=== PATIENT | female | born 1940 | race Caucasian/White ===

== ENCOUNTER 2021-08-24 16:34 | Inpatient (IN) ==
[2021-08-24] MEDS ORDERED: Isovue-370 500 ML BOTTLE IVP ONE (18:05)
[2021-08-24 19:26] LABS: Basophils % 0.1 %; Eosinophils % 0.1 %; Hematocrit 42.6 % (35.3-44.9); Hemoglobin 13.8 g/dL (11.5-15.4); Immature Granulocytes % 0.5 % (0-4); Lymphocytes # 0.9 K/mcL (0.6-4.6); Lymphocytes % 5.3 %; Mean Corpuscular HGB Conc 32.4 g/dL (31.6-35.5); Mean Corpuscular Hemoglobin 26.6 pg (28.0-33.3); Mean Corpuscular Volume 82.2 fL (83.0-100.0); Mean Platelet Volume 9.8 fL (9.4-12.4); Monocytes # 0.9 K/mcL (0.0-1.3); Monocytes % 5.4 %; Neutrophils # 14.9 K/mcL (1.6-8.9); Platelet Count 274 K/mcL (140-400); Red Blood Count 5.18 M/mcL (3.82-4.97); Red Cell Distribution Width 17.2 % (11.5-14.5); Segmented Neutrophils % 88.6 %; White Blood Count 16.8 K/mcL (4.3-11.1)
[2021-08-24 19:56] LABS: Activated Partial Thrombo Time 28.9 Seconds (26.0-36.0); INR 1.5; Prothrombin Time 16.4 Seconds (9.4-12.1)
[2021-08-24 20:01] LABS: BUN/Creatinine Ratio 31 (6-26); Blood Urea Nitrogen 28 mg/dL (8-23); Carbon Dioxide 34 mEq/L (23-29); Chloride 81 mEq/L (98-107); Sodium 129 mEq/L (136-145); eGFR For African Americans > 60 (> 60); eGFR For Non-African Americans 60 (> 60)
[2021-08-24 20:02] LABS: Alanine Aminotransferase 14 Units/L (7-52); Alkaline Phosphatase 96 Units/L (34-104); Aspartate Amino Transferase 23 Units/L (13-39); Bilirubin,Total 0.5 mg/dL (0.3-1.0); Calcium 9.2 mg/dL (8.6-10.3); Glucose 83 mg/dL (70-105); Osmolality,Calculated 273 (280-300); Total Protein 6.1 g/dL (6.4-8.9)
[2021-08-24 20:03] LABS: Albumin 4.2 g/dL (3.5-5.7); Albumin/Globulin Ratio 2.2 (1.1-2.2); Globulin 1.9 g/dL (2.4-3.5); Lipase 46 Units/L (11-82)
[2021-08-24] MEDS ORDERED: cefTRIAXone 2,000 MG in Water for inj. (sterile) 20 ML IVP ONE (20:56)
[2021-08-24] MEDS ORDERED: MetroNIDAZOLE 500 MG/100 ML 500 MG/100 ML BAG IVPB ONE (20:56)
[2021-08-25] MEDS ORDERED: Naloxone 0.4 MG/ML INJ IVP PRN (01:03)
[2021-08-25] MEDS ORDERED: Ondansetron 4 MG/2 ML VIAL IVP PRN (01:03)
[2021-08-25 02:00] LABS: Basophils % 0.1 %; Eosinophils % 0.1 %; Hematocrit 37.1 % (35.3-44.9); Immature Granulocytes % 0.7 % (0-4); Lymphocytes # 0.9 K/mcL (0.6-4.6); Lymphocytes % 6.3 %; Mean Corpuscular HGB Conc 32.3 g/dL (31.6-35.5); Mean Corpuscular Hemoglobin 26.7 pg (28.0-33.3); Mean Corpuscular Volume 82.4 fL (83.0-100.0); Monocytes # 1.2 K/mcL (0.0-1.3); Monocytes % 8.3 %; Neutrophils # 12.3 K/mcL (1.6-8.9); Platelet Count 245 K/mcL (140-400); Red Cell Distribution Width 17.3 % (11.5-14.5); Segmented Neutrophils % 84.5 %; White Blood Count 14.6 K/mcL (4.3-11.1)
[2021-08-25 02:17] LABS: Alanine Aminotransferase 11 Units/L (7-52); Albumin 3.5 g/dL (3.5-5.7); Albumin/Globulin Ratio 1.8 (1.1-2.2); Alkaline Phosphatase 76 Units/L (34-104); Aspartate Amino Transferase 19 Units/L (13-39); BUN/Creatinine Ratio 32 (6-26); Bilirubin,Total 0.3 mg/dL (0.3-1.0); Blood Urea Nitrogen 28 mg/dL (8-23); Calcium 8.2 mg/dL (8.6-10.3); Carbon Dioxide 31 mEq/L (23-29); Chloride 83 mEq/L (98-107); Glucose 79 mg/dL (70-105); Magnesium 2.2 mg/dL (1.6-2.6); Osmolality,Calculated 272 (280-300); Phosphorous 3.5 mg/dL (2.7-4.5); Potassium 3.9 mEq/L (3.5-5.1); Sodium 129 mEq/L (136-145); Total Protein 5.5 g/dL (6.4-8.9); eGFR For African Americans > 60 (> 60); eGFR For Non-African Americans > 60 (> 60)
[2021-08-25 02:22] LABS: INR 1.6
[2021-08-25 02:25] LABS: Activated Partial Thrombo Time 29.4 Seconds (26.0-36.0)
[2021-08-25] MEDS: cefTRIAXone 1,000 MG in Water for inj. (sterile) 10 ML IVP SCH (08:16)
[2021-08-25] MEDS ORDERED: Heparin 1,000 UNITS/500 mL 500 ML ONE (11:37)
[2021-08-25] MEDS ORDERED: ceFAZolin 1,000 MG in 0.9 % Sodium Chloride 100 ML IVPB SCH (12:04)
[2021-08-25] MEDS ORDERED: Bisacodyl 10 MG RECTAL SUPPOSITORY RC PRN (12:17)
[2021-08-25] MEDS ORDERED: Prochlorperazine 10 MG/2 ML VIAL IVP PRN (12:18)
[2021-08-25 12:35] LABS: Bilirubin,Urine Negative (Negative); Blood,Urine Negative (Negative); Clarity,Urine Clear (Clear); Color,Urine Light-Yellow (Yellow); Glucose,Urine (UA) Normal (Normal); Ketones,Urine 20 mg/dL (Negative); Leukocyte Esterase,Urine Negative (Negative); Nitrite,Urine Negative (Negative); Protein,Urine Trace mg/dL (Neg-Trace); Specific Gravity,Urine > 1.030 (1.010-1.025); Urobilinogen,Urine Normal (Normal)
[2021-08-25] MEDS ORDERED: Isovue-370 500 ML BOTTLE IVP ONE (13:38)
[2021-08-25] MEDS: *HR* HYDROcodone/Acet 5/325 mg TABLET PO PRN ×2 (13:43→23:07)
[2021-08-25] MEDS: Pantoprazole 40 MG VIAL IVP SCH (13:44)
[2021-08-25] MEDS: polyethylene glycoL 3350 17 GM POWD.PACK PO SCH (13:44)
[2021-08-25] MEDS ORDERED: CeFAZolin 2,000 MG/120 ML BAG IVPB ONE (14:30)
[2021-08-25 15:02] LABS: Uric Acid 8.9 mg/dL (2.3-7.6)
[2021-08-25 15:14] LABS: Carcinoembryonic Antigen 20.5 ng/mL (Less than 5.0)
[2021-08-25] MEDS ORDERED: 0.9 % Sodium Chloride 1,000 ML IVC ONE (16:33)
[2021-08-25 17:17] LABS: Total Protein,Peritoneal Fluid 3.2 g/dL
[2021-08-25 18:03] LABS: Albumin 3.4 g/dL (3.5-5.7)
[2021-08-25 18:12] LABS: RBC,Peritoneal Fluid 2000 RBC/mcL
[2021-08-25 18:26] LABS: Appearance of Peritoneal Fl HAZY (Clear)
[2021-08-25 18:28] LABS: Basophils,Peritoneal Fluid 0 %; Eosinophils,Peritoneal Fluid 0 %
[2021-08-26 03:17] LABS: Basophils % 0.2 %; Eosinophils # 0.3 K/mcL (0.0-0.6); Hematocrit 38.2 % (35.3-44.9); Immature Granulocytes % 0.6 % (0-4); Lymphocytes # 1.3 K/mcL (0.6-4.6); Mean Corpuscular HGB Conc 31.4 g/dL (31.6-35.5); Mean Corpuscular Hemoglobin 26.3 pg (28.0-33.3); Mean Corpuscular Volume 83.6 fL (83.0-100.0); Mean Platelet Volume 10.1 fL (9.4-12.4); Monocytes # 1.5 K/mcL (0.0-1.3); Monocytes % 9.2 %; Neutrophils # 13.3 K/mcL (1.6-8.9); Platelet Count 225 K/mcL (140-400); Red Blood Count 4.57 M/mcL (3.82-4.97); Red Cell Distribution Width 17.3 % (11.5-14.5); White Blood Count 16.6 K/mcL (4.3-11.1)
[2021-08-26 03:36] LABS: BUN/Creatinine Ratio 28 (6-26); Blood Urea Nitrogen 20 mg/dL (8-23); Calcium 7.5 mg/dL (8.6-10.3); Carbon Dioxide 32 mEq/L (23-29); Chloride 89 mEq/L (98-107); Glucose 90 mg/dL (70-105); Osmolality,Calculated 270 (280-300); Potassium 3.5 mEq/L (3.5-5.1); Sodium 129 mEq/L (136-145); eGFR For African Americans > 60 (> 60); eGFR For Non-African Americans > 60 (> 60)
[2021-08-26] MEDS ORDERED: polyethylene glycoL 3350 17 GM POWD.PACK PO SCH (09:00)
[2021-08-26] MEDS: cefTRIAXone 1,000 MG in Water for inj. (sterile) 10 ML IVP SCH (09:54)
[2021-08-26] MEDS: Pantoprazole 40 MG VIAL IVP SCH (09:54)
[2021-08-26] MEDS: polyethylene glycoL 3350 17 GM POWD.PACK PO SCH (09:55)
[2021-08-26] MEDS: *HR* HYDROcodone/Acet 5/325 mg TABLET PO PRN (10:03)
[2021-08-26] MEDS ORDERED: *HR* Midazolam HCl 2 MG/2 ML VIAL IVP ONE (12:51)
[2021-08-26] MEDS ORDERED: *HR* FentaNYL (PF) 100 MCG/2 ML VIAL IVP ONE (12:51)
[2021-08-26] MEDS ORDERED: 0.9 % Sodium Chloride 250 ML ONE (13:02)
[2021-08-26] MEDS: Ipratropium/Albuterol Neb 3 ML IH SCH ×2 (15:31→20:44)
[2021-08-26] MEDS: Magnesium Oxide 400 MG TABLET PO SCH (21:03)
[2021-08-27] MEDS: Ipratropium/Albuterol Neb 3 ML IH SCH ×2 (04:03→12:04)
[2021-08-27 05:19] LABS: Basophils % 0.3 %; Eosinophils # 0.3 K/mcL (0.0-0.6); Eosinophils % 1.7 %; Hematocrit 38.7 % (35.3-44.9); Hemoglobin 12.5 g/dL (11.5-15.4); Immature Granulocytes % 0.4 % (0-4); Lymphocytes # 1.2 K/mcL (0.6-4.6); Lymphocytes % 8.1 %; Mean Corpuscular HGB Conc 32.3 g/dL (31.6-35.5); Mean Corpuscular Hemoglobin 27.1 pg (28.0-33.3); Mean Corpuscular Volume 83.8 fL (83.0-100.0); Mean Platelet Volume 10.3 fL (9.4-12.4); Monocytes # 1.4 K/mcL (0.0-1.3); Monocytes % 9.6 %; Neutrophils # 11.9 K/mcL (1.6-8.9); Platelet Count 232 K/mcL (140-400); Red Blood Count 4.62 M/mcL (3.82-4.97); Red Cell Distribution Width 17.5 % (11.5-14.5); Segmented Neutrophils % 79.9 %; White Blood Count 14.9 K/mcL (4.3-11.1)
[2021-08-27 05:36] LABS: BUN/Creatinine Ratio 22 (6-26); Blood Urea Nitrogen 15 mg/dL (8-23); Calcium 7.5 mg/dL (8.6-10.3); Carbon Dioxide 34 mEq/L (23-29); Chloride 90 mEq/L (98-107); Glucose 121 mg/dL (70-105); Osmolality,Calculated 268 (280-300); Potassium 3.6 mEq/L (3.5-5.1); Sodium 128 mEq/L (136-145); eGFR For African Americans > 60 (> 60); eGFR For Non-African Americans > 60 (> 60)
[2021-08-27] MEDS ORDERED: Calcium Gluconate 1gm/50mL 1 GM/50 ML BAG IVPB ONE (07:25)
[2021-08-27] MEDS: Pantoprazole 40 MG VIAL IVP SCH (10:05)
[2021-08-27] MEDS: Magnesium Oxide 400 MG TABLET PO SCH (10:05)
[2021-08-27] MEDS: cefTRIAXone 1,000 MG in Water for inj. (sterile) 10 ML IVP SCH (10:06)
[2021-08-27] MEDS: polyethylene glycoL 3350 17 GM POWD.PACK PO SCH (10:07)
[2021-08-27 11:42] VITALS: BP 131/78; PULSE 86; TEMP 98.2; O2SAT 96
[2021-08-28 00:57] LABS: Fluid Source for Albumin PERITONEAL FL
[2021-08-28 10:39] LABS: AFP Tumor Marker Non-Pregnant 25 ng/mL (0-9); Cancer Antigen-GI (CA 19-9) 79 U/mL (0-37)
== END 2021-08-27 13:10 | disposition home health service (06) | DRG 436 ==
LOC: 2ANU 16:34 → EMEROOARM 16:34 → SUATTDRO 21:51 → 2ANU 22:58
PROVIDERS: ADMIT Family Medicine; ATTEND General Practice
PROC: IRLIVER (2021-08-26 12:00)